=== PATIENT | male | born 1980 | race African-American/Black ===

== ENCOUNTER 2018-11-02 15:47 | Emergency (ER) | payer MEDICAID ==
[~2018-11-02] VITALS: Ht 170.2 cm; Wt 141.7 kg
[2018-11-02 15:50] VITALS: BP 119/76
--- NOTE | 2018-11-02 15:55 | NUR ---
PT AMBULATED TO BED 5
--- NOTE | 2018-11-02 16:00 | NUR ---
PT BIB SELF/ CO RIGHT EYE DISCHARGE, REDNESS, AND SWELLING SINCE LAST NIGHT. PT DENIES N/V/D; SKIN IS INTACT, PINK/WARM/DRY; AAOX4, PERRL, WITH EVEN AND STEADY GAIT; LUNGS CLEAR BL, BREATHING UNLABORED; HR EVEN AND REGULAR, BL PERIPHERAL PULSES PRESENT; BS ACTIVE X4, NO TENDERNESS TO PALPATION, NO HEPATOSPLENOMEGALLY PALPATED, RESONANT TO PERCUSSION; PT DENIES ANY FEVER, CP, SOB, OR COUGH AT THIS TIME; PT STATES 0/10 PAIN AT THIS TIME; VSS; PATIENT POSITIONED FOR COMFORT; HOB ELEVATED; BEDRAILS UP X2; BED DOWN.
--- NOTE | 2018-11-02 16:17 | NUR ---
EDMD AT BEDSIDE
--- NOTE | 2018-11-02 16:47 | NUR ---
Patient discharged with v/s stable. Written and verbal after care instructions given and explained. Patient alert, oriented and verbalized understanding of instructions. Ambulatory with steady gait. All questions addressed prior to discharge. ID band removed. Patient advised to follow up with PMD. Rx of SULFACETMIDE DROPS given. Patient educated on indication of medication including possible reaction and side effects. Opportunity to ask questions provided and answered.
== END 2018-11-02 16:47 | disposition home or self-care (01) ==
LOC: MED 15:47
DX: H10.9 Unspecified conjunctivitis (principal)
CPT/HCPCS: 99283

== ENCOUNTER 2019-05-18 11:42 | Emergency (ER) | payer MEDICAID ==
[~2019-05-18] VITALS: Ht 167.6 cm; Wt 143.1 kg
[2019-05-18 11:50] VITALS: BP 143/79
--- NOTE | 2019-05-18 13:02 | NUR ---
PATIENT AMBULATED TO ER BED 6
--- NOTE | 2019-05-18 13:21 | NUR ---
PT BIB SELF FOR BL FOOT SWELLING. PT STATES LEFT FOOT HAS BEEN MORE SWOLLEN. +1 PITTING EDEMA NOTED TO BOTH FEET. NO OPEN SKIN, NO REDNESS, NO N/T. +CMS. PT AWAKE AND SITTING UP IN BED. NO PMH
--- NOTE | 2019-05-18 13:21 | NUR ---
NURSING NOTES COMPLETED BY MYSELF AT THIS TIME. Addendum: 05/18/19 at 1329 by DIONE ALSO ASSESSMENT DONE BY MYSELF.
--- NOTE | 2019-05-18 13:46 | NUR ---
AAO X4 PT NO C/O PAIN AT THIS TIME, BED AT LOWEST SETTINGS, WILL CONTINUE TO MONITOR
[2019-05-18 14:45] LABS: BASOPHILS % (AUTO) 0.5 % (0.0-2.0); EOSINOPHILS # (AUTO) 0.2 K/uL (0-0.4); EOSINOPHILS % (AUTO) 2.1 % (0.0-4.0); HEMATOCRIT 47.1 % (36-52); HEMOGLOBIN 15.5 g/dL (12.0-18.0); LYMPHOCYTES # (AUTO) 1.5 K/uL (2.0-11.5); LYMPHOCYTES % (AUTO) 19.3 % (20.5-51.1); MEAN CORPUSCULAR HEMOGLOBIN 29 pg (27-31); MEAN CORPUSCULAR HGB CONC 33 g/dL (33-37); MEAN CORPUSCULAR VOLUME 87.4 fL (80-94); MONOCYTES # (AUTO) 0.9 K/uL (0.8-1.0); MONOCYTES % (AUTO) 11.5 % (1.7-9.3); NEUTROPHILS # (AUTO) 5.2 K/uL (1.8-7.7); NEUTROPHILS % (AUTO) 66.6 % (42.2-75.2); PLATELET COUNT (AUTO) 261 K/uL (140-450); RED BLOOD CELL COUNT(AUTO) 5.39 MIL/uL (4.20-6.10); RED CELL DISTRIBUTION WIDTH 13.4 % (11.6-13.7); WHITE BLOOD COUNT (AUTO) 7.8 K/uL (4.8-10.8)
[2019-05-18 15:03] LABS: ANION GAP 11.8 (8-16); CARBON DIOXIDE 28.3 mmol/L (21-32); POTASSIUM 4.1 mmol/L (3.5-5.1)
[2019-05-18 15:09] LABS: ALBUMIN 3.4 g/dL (3.4-5.0); TOTAL BILIRUBIN 0.4 mg/dL (0.0-1.0)
--- NOTE | 2019-05-18 15:35 | NUR ---
PT TO BE D/C NO C/O PAIN AT THIS TIME, WAITIING FOR D/C PAPERS, WILL CONTINUE TO MONITOR
[2019-05-18 15:38] VITALS: BP 139/79
--- NOTE | 2019-05-18 15:38 | NUR ---
Patient discharged with v/s stable. Written and verbal after care instructions given and explained. Patient alert, oriented and verbalized understanding of instructions. Ambulatory with steady gait. All questions addressed prior to discharge. ID band removed. Patient advised to follow up with PMD. Rx of Lasix given. Patient educated on indication of medication including possible reaction and side effects. Opportunity to ask questions provided and answered.
== END 2019-05-18 15:38 | disposition home or self-care (01) ==
LOC: MED 11:42
DX: R60.0 Localized edema (principal)
CPT/HCPCS: 36415; 80053; 83880; 84484; 85025; 93005; 99284